=== PATIENT | female | born 1990 | race Caucasian/White ===

== ENCOUNTER 2022-06-07 23:59 | Inpatient (IN) ==
[2022-06-08] MEDS ORDERED: miSOPROStoL 200 MCG TABLET RECTAL PRN (01:07)
[2022-06-08] MEDS ORDERED: METHYLERGONOVINE 0.2 MG/1 ML AMP IM PRN (01:07)
[2022-06-08] MEDS ORDERED: BUTORPHANOL 2 MG/ML VIAL IV PRN (01:07)
[2022-06-08] MEDS ORDERED: ONDANSETRON 4 MG/2 ML VIAL IV PRN ×2 (01:07→12:14)
[2022-06-08] MEDS ORDERED: OXYTOCIN/LR 20 UNIT/1,000 ML BAG IV ONE ×2 (01:07→12:14)
[2022-06-08] MEDS ORDERED: MEPERIDINE 50 MG/1 ML VIAL IM PRN (01:07)
[2022-06-08] MEDS ORDERED: CARBOPROST TROMETHAMINE 250 MCG/ML AMP IM PRN (01:07)
[2022-06-08] MEDS ORDERED: TRANEXAMIC ACID 1,000 MG in SODIUM CHLORIDE 0.9% 100 ML IV PRN (01:07)
[2022-06-08] MEDS ORDERED: MEPERIDINE 25 MG/1 ML VIAL IM PRN (01:18)
[2022-06-08 01:39] LABS: Basophils % 0.4 % (0.0-0.8); Eosinophils # 0.1 10*3/uL (0.0-0.87); Eosinophils % 1.7 % (0.00-10.9); Hematocrit 31.9 VOL% (35.7-47.0); Hemoglobin 10.1 GM/DL (12.0-16.0); Immature Granulocytes % 1.6 %; Immature Granulocytes Absolute 0.13 #; Lymphocytes # 1.8 10*3/uL (1.4-4.0); Lymphocytes % 21.3 % (21.3-54.2); Mean Corpuscular HGB Conc 31.7 GM/DL (32-36); Mean Corpuscular Volume 82.2 FL (87-102); Mean Platelet Volume 9.3 FL (9.6-12.0); Monocytes # 1.1 10*3/uL (0.11-0.8); Monocytes % 13.3 % (1.7-12.7); Neutrophils % 61.7 % (38.7-73.9); Platelet Count 246 T/CUMM (130-400); Red Blood Count 3.88 MC/CUMM (3.8-5.5); Red Cell Distribution Width 16.6 % (9.3-17.3); White Blood Count 8.2 T/CUMM (4-12)
[2022-06-08 02:06] LABS: Alanine Aminotransferase 13 U/L (13-56); Albumin 2.4 G/DL (3.4-5.0); Alkaline Phosphatase 107 U/L (45-117); Aspartate Amino Transferase 15 U/L (0-37); Bilirubin,Total < 0.39 MG/DL (0.20-1.00); Blood Urea Nitrogen 8 MG/DL (7-18); Calcium 8.8 MG/DL (8.5-10.1); Carbon Dioxide 22 MMOL/L (21-32); Chloride 109 MMOL/L (98-107); Glucose 109 MG/DL (74-106); Osmolality,Calculated 275.5 MOS/KG (273-304); Potassium 3.6 MMOL/L (3.5-5.1); Sodium 139 MMOL/L (136-145); Total Protein 6.3 G/DL (6.4-8.2)
[2022-06-08] MEDS: LACTATED RINGERS 1,000 ML IV SCH ×2 (05:44→08:39)
[2022-06-08] MEDS ORDERED: OXYTOCIN/LR 20 UNIT/1,000 ML BAG IV SCH (06:00)
[2022-06-08] MEDS ORDERED: LACTATED RINGERS 1,000 ML IV ONE (07:49)
[2022-06-08] MEDS ORDERED: diphenhydrAMINE 50 MG/1 ML VIAL IV PRN ×2 (07:49)
[2022-06-08] MEDS ORDERED: hydrOXYzine HCL 25 MG/1 ML VIAL IM PRN (07:49)
[2022-06-08] MEDS ORDERED: NALOXONE 0.4 MG/ML VIAL IV PRN (07:49)
[2022-06-08] MEDS ORDERED: ePHEDrine 50 MG/ML VIAL IV PRN (07:49)
[2022-06-08] MEDS ORDERED: FAMOTIDINE 20 MG/2 ML VIAL IV ONE ×2 (07:49→07:55)
[2022-06-08] MEDS ORDERED: CITRIC ACID/SODIUM CITRATE 30 ML UDCUP PO ONE (07:49)
[2022-06-08] MEDS ORDERED: PROMETHAZINE 25 MG/1 ML VIAL IM ONE (07:49)
[2022-06-08] MEDS ORDERED: ePHEDrine 50 MG/ML VIAL ONE (07:54)
[2022-06-08] MEDS ORDERED: CITRIC ACID/SODIUM CITRATE 30 ML UDCUP ONE (07:54)
[2022-06-08] MEDS ORDERED: fentaNYL 2 MCG/ROPIV 0.2% EPID 100 ML EPIDURAL ONE (07:54)
[2022-06-08] MEDS ORDERED: fentaNYL 2 MCG/ROPIV 0.2% EPID 100 ML EPIDURAL SCH (08:00)
[2022-06-08 09:42] LABS: RBC,Urine 9 /HPF (0-4)
[2022-06-08 09:43] LABS: Bilirubin,Urine Negative (Negative); Blood, Urine Moderate mg/dL (Negative); Glucose,Urine (UA) Negative (Negative); Ketones,Urine Negative (Negative); Nitrite,Urine Negative (Negative); Protein,Urine Negative (Negative); Urine Appearance Clear (Clear); Urine Color Yellow (Yellow); Urine Urobilinogen 0.2 eU/dL (<2.0)
[2022-06-08] MEDS ORDERED: miSOPROStoL 200 MCG TABLET ONE (11:39)
[2022-06-08] MEDS ORDERED: METHYLERGONOVINE 0.2 MG/1 ML AMP ONE (11:39)
[2022-06-08] MEDS ORDERED: TRANEXAMIC ACID 1,000 MG/10 ML VIAL ONE (11:39)
[2022-06-08] MEDS ORDERED: CARBOPROST TROMETHAMINE 250 MCG/ML AMP IM ONE (11:39)
[2022-06-08] MEDS ORDERED: SODIUM CHLORIDE 0.9% 100 ML IV ONE (11:39)
[2022-06-08 12:14] LABS: Cord Arterial Blood HCO3 22.6 MMOL/L
[2022-06-08] MEDS ORDERED: HYDROCORTISONE 2.5% RECTAL CREAM 30 GM TUBE TOP PRN (12:14)
[2022-06-08] MEDS ORDERED: BENZOCAINE 20%/MENTHOL 0.5% SPRAY 56 GM CAN TOP PRN (12:14)
[2022-06-08] MEDS ORDERED: ACETAMINOPHEN 325 MG TABLET PO PRN (12:14)
[2022-06-08] MEDS ORDERED: DIPH/TET/ACEL PERT BOOSTER VACCINE 0.5 ML VIAL IM ONE (12:14)
[2022-06-08] MEDS ORDERED: LANOLIN 50% CREAM 0.3 OZ TUBE TOP PRN (12:14)
[2022-06-08] MEDS ORDERED: MEASLES/MUMPS/RUBELLA VACCINE 0.5 ML VIAL SUBCUT ONE (12:14)
[2022-06-08] MEDS ORDERED: BISACODYL 10 MG SUPP RECTAL PRN (12:14)
[2022-06-08] MEDS ORDERED: RHO(D) IMMUNE GLOBULIN 300 MCG SYRINGE IM ONE (12:14)
[2022-06-08] MEDS ORDERED: oxyCODONE/ACETAMINOPHEN 5-325 MG TABLET PO PRN (12:14)
[2022-06-08] MEDS ORDERED: WITCH HAZEL PADS 100/JAR TOP PRN (12:14)
[2022-06-08 12:16] LABS: Cord Venous Blood HCO3 23.3 MMOL/L; Cord Venous Blood PCO2 44.9 MMHG; Cord Venous Blood PO2 25.7
[2022-06-08] MEDS: IBUPROFEN 800 MG TABLET PO PRN (15:52)
[2022-06-08] MEDS: oxyCODONE/ACETAMINOPHEN 5-325 MG TABLET PO PRN (20:21)
[2022-06-08] MEDS: DOCUSATE SODIUM 100 MG CAPSULE PO SCH (20:22)
[2022-06-09] MEDS: IBUPROFEN 800 MG TABLET PO PRN ×3 (01:06→19:18)
[2022-06-09 04:38] LABS: Basophils # 0.1 10*3/uL (0.0-0.2); Basophils % 0.6 % (0.0-0.8); Eosinophils # 0.4 10*3/uL (0.0-0.87); Eosinophils % 2.7 % (0.00-10.9); Hematocrit 26.9 VOL% (35.7-47.0); Hemoglobin 8.4 GM/DL (12.0-16.0); Immature Granulocytes % 0.7 %; Immature Granulocytes Absolute 0.09 #; Lymphocytes # 2.4 10*3/uL (1.4-4.0); Lymphocytes % 18.4 % (21.3-54.2); Mean Corpuscular HGB Conc 31.2 GM/DL (32-36); Mean Corpuscular Volume 82.3 FL (87-102); Mean Platelet Volume 9.9 FL (9.6-12.0); Monocytes # 1.1 10*3/uL (0.11-0.8); Monocytes % 8.8 % (1.7-12.7); Neutrophils % 68.8 % (38.7-73.9); Platelet Count 263 T/CUMM (130-400); Red Blood Count 3.27 MC/CUMM (3.8-5.5); Red Cell Distribution Width 16.7 % (9.3-17.3); White Blood Count 12.9 T/CUMM (4-12)
[2022-06-09] MEDS: DOCUSATE SODIUM 100 MG CAPSULE PO SCH ×2 (10:04→21:35)
[2022-06-09] MEDS: oxyCODONE/ACETAMINOPHEN 5-325 MG TABLET PO PRN (10:05)
[2022-06-10] MEDS: DOCUSATE SODIUM 100 MG CAPSULE PO SCH (09:13)
[2022-06-10 09:42] VITALS: BP 127/88
== END 2022-06-10 11:20 | disposition home or self-care (01) | DRG 807 ==
LOC: N.LDOUT 23:59 → N.LD 06-08 00:10 → N.OB 06-08 21:50
PROVIDERS: ADMIT Obstetrics & Gynecology; ATTEND Obstetrics & Gynecology